=== PATIENT | female | born 1985 | race Two or more races ===

== ENCOUNTER 2023-10-02 04:55 | Inpatient (IN) | payer MEDICAID ==
[~2023-10-02] VITALS: Ht 152.4 cm; Wt 59.0 kg
[2023-10-02 05:30] LABS: BASOPHILS # (AUTO) 0.1 X10'3 (0-0.2); BASOPHILS % (AUTO) 1.2 % (0-1); EOSINOPHILS % (AUTO) 8.6 % (0-6); HEMATOCRIT 36.7 % (35.0-45.0); HEMOGLOBIN 11.5 g/dl (12.0-16.0); LYMPHOCYTES # (AUTO) 3.5 X10'3 (1.1-4.8); LYMPHOCYTES % (AUTO) 31.2 % (21-51); MEAN CORPUSCULAR HEMOGLOBIN 21.2 PG (27.0-31.0); MEAN CORPUSCULAR HGB CONC 31.2 g/dL (33.0-36.5); MEAN CORPUSCULAR VOLUME 67.9 FL (78-98); MEAN PLATELET VOLUME 6.9 FL (7.4-10.4); MONOCYTES # (AUTO) 0.8 X10'3 (0-0.9); MONOCYTES % (AUTO) 6.7 % (2-12); NEUTROPHILS # (AUTO) 5.8 X10'3 (1.8-7.7); NEUTROPHILS % (AUTO) 52.3 % (42-75); PLATELET COUNT 390 X10'3 (140-440); RED BLOOD COUNT 5.41 X10'6 (4.20-5.60); RED CELL DISTRIBUTION WIDTH 18.3 % (11.5-14.5); WHITE BLOOD COUNT 11.2 X10'3 (4.5-11.0)
[2023-10-02] MEDS: heparin 25,000 UNIT/250ml bag 250 ML IV PRN ×2 (05:39→20:44)
[2023-10-02 05:43] LABS: APTT 35 SECONDS (22-32)
[2023-10-02] MEDS ORDERED: MESSAGE TO NURSING IV ONE (05:50)
[2023-10-02] MEDS: MESSAGE TO NURSING IV ONE ×4 (05:50→20:52)
[2023-10-02] MEDS ORDERED: potassium Cl 40MEQ/1/2NS 520ml 520 ML IV PRN (06:00)
[2023-10-02] MEDS ORDERED: acetaminophen 325mg tablet PO PRN (06:00)
[2023-10-02] MEDS ORDERED: magnesium Cl slow-release 64mg tablet PO PRN (06:00)
[2023-10-02] MEDS ORDERED: magnesium sulf-water 4G/100mL 100 ML IV PRN (06:00)
[2023-10-02] MEDS ORDERED: PERFLUTREN PROTEIN-A MICROSPHR (Optison) 0.22 MG/ML 3ML VIAL IV PRN (06:00)
[2023-10-02] MEDS ORDERED: mag hydrox/Alum hydrox/simeth 30ml oral suspension PO PRN (06:00)
[2023-10-02] MEDS ORDERED: potassium Cl 20 mEq SR tablet PO PRN (06:00)
[2023-10-02] MEDS ORDERED: magnesium sulf-water 2g/50mL 50 ML IV PRN (06:00)
[2023-10-02] MEDS ORDERED: magnesium hydroxide 30ml (MOM) UD suspension PO PRN (06:00)
[2023-10-02] MEDS ORDERED: ondansetron/PF 4mg/2ml inj IV PRN (06:00)
[2023-10-02] MEDS: carVEDilol 3.125mg tablet PO SCH (06:05)
[2023-10-02] MEDS: atorvastatin 20mg tablet PO SCH (06:05)
[2023-10-02] MEDS ORDERED: nitroGLYCERIN 0.4mg SUBLingual tab SL PRN (06:05)
[2023-10-02] MEDS: heparin 10,000 units/1 ML INJ IV PRN (06:06)
[2023-10-02] MEDS: lisinopril 10 MG tablet PO ONE (06:10)
[2023-10-02 06:15] LABS: ANISOCYTOSIS 2+; MICROCYTOSIS 2+; PLATELET ESTIMATE NORMAL
[2023-10-02 06:16] LABS: HYPOCHROMASIA 1+
[2023-10-02] MEDS ORDERED: ONDA-243 PO (06:17)
[2023-10-02] MEDS ORDERED: ASPI-1265 PO (06:17)
[2023-10-02] MEDS: K and/or MAG REPLACEMENT MC SCH (08:00)
[2023-10-02] MEDS: docusate sod 100mg capsule PO SCH (08:00)
[2023-10-02] MEDS: aspirin 325mg tablet, delayed-release (Ecotrin) PO ONE (08:07)
[2023-10-02 09:30] LABS: ALBUMIN 3.4 G/DL (3.4-5.0); ANION GAP 9 (8-16); BLOOD UREA NITROGEN 9 MG/DL (7-18); BUN/CREATININE RATIO 11.4 (10.0-20.0); CHLORIDE 102 MMOL/L (99-107); CREATININE 0.79 MG/DL (0.40-0.90); GLUCOSE 94 MG/DL (70-104); POTASSIUM 3.4 MMOL/L (3.5-5.1); SODIUM 137 MMOL/L (135-145); TOTAL CARBON DIOXIDE 26.4 MMOL/L (24-32); eCRCL 69 ML/MIN; eGFR 81 ML/MIN
[2023-10-02 09:42] LABS: HCG SERUM QL NEGATIVE
[2023-10-02 12:50] LABS: URINE HCG NEGATIVE (NEG)
[2023-10-02 13:02] LABS: URINE AMPHETAMINE SCREEN POSITIVE (Neg); URINE BARBITUATE SCREEN NEGATIVE (Neg); URINE BENZODIAZEPINES SCREEN NEGATIVE (Neg); URINE CANNABINOID SCREEN NEGATIVE (Neg); URINE COCAINE SCREEN NEGATIVE (Neg); URINE METHADONE SCREEN NEGATIVE (Neg); URINE OPIATE SCREEN NEGATIVE (Neg); URINE PHENCYCLIDINE SCREEN NEGATIVE (Neg)
[2023-10-02 13:52] LABS: BILIRUBIN,URINE SMALL (Neg); CLARITY,URINE SLIGHTLY CLOUDY (Clear); COLOR,URINE YELLOW (Yellow); GLUCOSE, URINE NEGATIVE (Neg); KETONES,URINE NEGATIVE (Neg); LEUKOCYTE ESTERASE ,URINE NEGATIVE (Neg); NITRITES, URINE NEGATIVE (Neg); OCCULT BLOOD,URINE TRACE-INTACT (Neg); PROTEIN,URINE TRACE mg/dl (Neg)
[2023-10-02 14:20] LABS: MUCUS STRANDS MANY /LPF (Neg); SQUAMOUS EPITHELIAL CELL,UR MANY /LPF (FEW); UA COLLECTION TYPE CLN CATCH MIDSTREAM
[2023-10-02 14:21] LABS: BACTERIA,URINE 2+ /HPF (Neg)
[2023-10-02] MEDS: normal saline 500ml IV soln 500 ML IV ONE (15:15)
[2023-10-02 16:49] VITALS: BP 97/51; PULSE 63; TEMP 97.3; O2SAT 95
[2023-10-02 18:00] VITALS: BP 126/67; PULSE 60; TEMP 97.7; O2SAT 96
[2023-10-02 20:00] VITALS: RESP 18; O2SAT 96
[2023-10-02] MEDS: potassium Cl 20 mEq SR tablet PO PRN (20:49)
[2023-10-03] VITALS (14 sets, daily range): BP systolic 45–120; BP diastolic 45–61; PULSE 58–91; RESP 14–19; TEMP 97.5–98.9; O2SAT 94–100
[2023-10-03 02:38] LABS: BASOPHILS # (AUTO) 0.1 X10'3 (0-0.2); BASOPHILS % (AUTO) 0.9 % (0-1); EOSINOPHILS # (AUTO) 0.8 X10'3 (0-0.9); HEMATOCRIT 33.1 % (35.0-45.0); HEMOGLOBIN 10.3 g/dl (12.0-16.0); LYMPHOCYTES # (AUTO) 3.1 X10'3 (1.1-4.8); LYMPHOCYTES % (AUTO) 29.9 % (21-51); MEAN CORPUSCULAR HEMOGLOBIN 21.3 PG (27.0-31.0); MEAN CORPUSCULAR HGB CONC 31.3 g/dL (33.0-36.5); MEAN CORPUSCULAR VOLUME 68.3 FL (78-98); MEAN PLATELET VOLUME 6.9 FL (7.4-10.4); MONOCYTES # (AUTO) 0.8 X10'3 (0-0.9); MONOCYTES % (AUTO) 7.7 % (2-12); NEUTROPHILS # (AUTO) 5.6 X10'3 (1.8-7.7); NEUTROPHILS % (AUTO) 53.5 % (42-75); PLATELET COUNT 356 X10'3 (140-440); RED BLOOD COUNT 4.85 X10'6 (4.20-5.60); RED CELL DISTRIBUTION WIDTH 18.3 % (11.5-14.5); WHITE BLOOD COUNT 10.4 X10'3 (4.5-11.0)
[2023-10-03 02:49] LABS: ALBUMIN 2.9 G/DL (3.4-5.0); ANION GAP 8 (8-16); BLOOD UREA NITROGEN 9 MG/DL (7-18); BUN/CREATININE RATIO 13.2 (10.0-20.0); CALCIUM 8.5 MG/DL (8.5-10.1); CHLORIDE 104 MMOL/L (99-107); CHOL/HDL RATIO 2.9 (0.00-4.99); CHOLESTEROL 112 MG/DL (0-200); CREATININE 0.68 MG/DL (0.40-0.90); GLUCOSE 104 MG/DL (70-104); HDL CHOLESTEROL 39 MG/DL (35-60); LDL CHOLESTEROL 65 MG/DL (50-100); POTASSIUM 4.3 MMOL/L (3.5-5.1); SODIUM 136 MMOL/L (135-145); TOTAL CARBON DIOXIDE 24.2 MMOL/L (24-32); TRIGLYCERIDES 90 MG/DL (20-135); eCRCL 81 ML/MIN; eGFR > 90 ML/MIN
[2023-10-03] MEDS: MESSAGE TO NURSING IV ONE ×2 (03:15→11:10)
[2023-10-03] MEDS ORDERED: nitroGLYCERIN 0.4mg SUBLingual tab SL PRN (04:25)
[2023-10-03] MEDS ORDERED: metoprolol tartrate 1mg/ml inj IV PRN (04:25)
[2023-10-03] MEDS: aspirin 81mg, enteric-coated 1 TAB TABLET.DR PO SCH (07:33)
[2023-10-03] MEDS: regadenoson 0.4mg/5ml syringe IV PRN (12:41)
[2023-10-03] MEDS: aminophylline 250mg/10ml inj. IV PRN (13:17)
[2023-10-03] MEDS: acetaminophen 325mg tablet PO PRN (14:09)
[2023-10-03] MEDS: enoxaparin 40mg/0.4ml syringe SUBCUT SCH (20:54)
[2023-10-03] MEDS: ROSUVASTATIN CALCIUM 5 MG TABLET PO SCH (22:04)
[2023-10-03] MEDS: nicotine 14mg patch - 24hr TD ONE (22:54)
[2023-10-04 02:00] VITALS: BP 103/52; PULSE 63; RESP 18; TEMP 98.9; O2SAT 99
[2023-10-04 06:00] VITALS: BP 105/79; PULSE 57; RESP 17; TEMP 98; O2SAT 100
[2023-10-04 06:14] LABS: BASOPHILS # (AUTO) 0.1 X10'3 (0-0.2); BASOPHILS % (AUTO) 0.6 % (0-1); EOSINOPHILS # (AUTO) 0.7 X10'3 (0-0.9); EOSINOPHILS % (AUTO) 7.1 % (0-6); HEMATOCRIT 33.7 % (35.0-45.0); HEMOGLOBIN 10.5 g/dl (12.0-16.0); LYMPHOCYTES # (AUTO) 2.4 X10'3 (1.1-4.8); LYMPHOCYTES % (AUTO) 25.3 % (21-51); MEAN CORPUSCULAR HEMOGLOBIN 21.3 PG (27.0-31.0); MEAN CORPUSCULAR HGB CONC 31.2 g/dL (33.0-36.5); MEAN CORPUSCULAR VOLUME 68.4 FL (78-98); MONOCYTES # (AUTO) 0.8 X10'3 (0-0.9); MONOCYTES % (AUTO) 8.2 % (2-12); NEUTROPHILS # (AUTO) 5.6 X10'3 (1.8-7.7); NEUTROPHILS % (AUTO) 58.8 % (42-75); PLATELET COUNT 370 X10'3 (140-440); RED BLOOD COUNT 4.93 X10'6 (4.20-5.60); RED CELL DISTRIBUTION WIDTH 18.6 % (11.5-14.5); WHITE BLOOD COUNT 9.5 X10'3 (4.5-11.0)
[2023-10-04 06:18] LABS: ALBUMIN 3.1 G/DL (3.4-5.0); ANION GAP 2 (8-16); BLOOD UREA NITROGEN 9 MG/DL (7-18); BUN/CREATININE RATIO 12.9 (10.0-20.0); CALCIUM 9.1 MG/DL (8.5-10.1); CHLORIDE 105 MMOL/L (99-107); GLUCOSE 117 MG/DL (70-104); POTASSIUM 4.2 MMOL/L (3.5-5.1); SODIUM 134 MMOL/L (135-145); TOTAL CARBON DIOXIDE 26.7 MMOL/L (24-32); eCRCL 78 ML/MIN; eGFR > 90 ML/MIN
[2023-10-04] MEDS: isosorbide mononitrate 30mg tab.SR.24H PO SCH (08:21)
[2023-10-04] MEDS: clopidogrel 75mg tablet PO SCH (08:23)
[2023-10-04] MEDS ORDERED: COR3.125T PO (11:30)
[2023-10-04] MEDS ORDERED: ROSU40TA PO (11:30)
[2023-10-04] MEDS ORDERED: CLOP75TA34 PO (11:30)
[2023-10-04] MEDS ORDERED: ISOS30TA84 PO (11:30)
[2023-10-04] MEDS ORDERED: ASPI-1265 PO (11:34)
== END 2023-10-04 13:52 | disposition home or self-care (01) | DRG 190 ==
LOC: ER 04:56 → ED HOLD 06:03 → PCU 3S 14:09
PROVIDERS: ADMIT Internal Medicine Critical Care Medicine; ATTEND Family Medicine
PROC: 4A02XM4 Measurement of Cardiac Total Activity, External Approach (ICD-10-PCS; principal; 2023-10-03)
PROC: 3E033HZ Introduction of Radioactive Substance into Peripheral Vein, Percutaneous Approach (ICD-10-PCS; 2023-10-03)
DX: I21.4 Non-ST elevation (NSTEMI) myocardial infarction (principal); E66.9 Obesity, unspecified; F15.10 Other stimulant abuse, uncomplicated; F17.200 Nicotine dependence, unspecified, uncomplicated; Z90.49 Acquired absence of other specified parts of digestive tract; G47.30 Sleep apnea, unspecified; Z68.25 Body mass index [BMI] 25.0-25.9, adult; Z88.6 Allergy status to analgesic agent
CPT/HCPCS: 36415; 78452; 80048; 80061; 80305; 81001; 81025; 83036; 84484; 84703; 85008; 85025; 85610; 85730; 87081; 93005; 93017; 93306; 99291; A4353; A6258; A9500; G0378; J0280; J1644; J1650; J2785; J7030; J7040